=== PATIENT | male | born 1980 | race Caucasian/White ===

== ENCOUNTER 2017-03-15 07:44 | Emergency (ER) | payer BC, OTHER ==
[~2017-03-15] VITALS: Ht 175.3 cm; Wt 72.6 kg
--- NOTE | 2017-03-15 07:53 | ED Integumentary General ---
General Stated Complaint: L HAND MIDDLE FINGER INFECTION FROM CUT Source: patient, RN notes reviewed Exam Limitations: no limitations History of Present Illness Time seen by provider: 07:53 Initial Comments Patient presents c/ c/o left middle finger swelling and pain. Originally sustain a cut to the finger on while trimming goat hooves. By Friday, the finger had become swollen, red, and painful and is even worse this AM. No idea on last tetanus shot. Timing/Duration: constant, getting worse Severity: moderate Location: hands (left middle finger) Possible Cause: other (see above) Modifying Factors: improves with other (worse c/ movement and palpation) Associated Symptoms: edema, swelling/mass/lumps Allergies and Home Medications Allergies Coded Allergies: No Known Drug Allergies (Unverified , 03/15/17) Home Medications Clindamycin HCl 150 Mg Capsule, 300 MG PO Q6H, #80 Ref 0 Prescribed by: SIXTO RUFFIN on 03/15/17 0820 Constitutional: see HPI Skin: see HPI, other (Laceration c/ redness, & swelling left middle finger) All Other Systems Reviewed Negative Unless Noted: Yes (Negative excepted noted.) Past Vlbiexn-Ghsuqf-Nlesmc Hx Patient Social History Recent Foreign Travel: No Contact w/Someone Who Travel: No Physical Exam Vital Signs Vital Sign - Last 12Hours 03/15/17 07:49 Temp 97.5 Pulse 75 Resp 18 B/P (MAP) 123/67 Pulse Ox 100 O2 Delivery Room Air Capillary Refill : General Appearance: WD/WN, no apparent distress Cardiovascular: regular rate, rhythm Respiratory: no respiratory distress Extremities: other (superficial laceration PIP joint of left middle finger c/ surrounding redness, swelling, pain, and tenderness c/w secondary infection/ cellulitis. Mild decreased ROM secondary to pain and swelling.) Neurologic/Psychiatric: no motor/sensory deficits, alert, normal mood/affect, oriented x 3 Skin: warm/dry, other (see above under extremity regarding skin findings) Skin Problem Location: upper extremities (left middle finger) Skin Problem Character: erythema, swelling, tenderness, warm Progress/Results/Core Measures Results/Orders My Orders Orders - SIXTO RUFFIN DO Dipht,Pertuss(Acell),Tet Adult (Boostrix (03/15/17 08:00) Finger(S) (03/15/17 07:56) Dipht,Pertuss(Acell),Tet Adult (Boostrix (03/15/17 08:00) Clindamycin Capsule (Cleocin Capsule) (03/15/17 08:15) Clindamycin Capsule (Cleocin Capsule) (03/15/17 08:15) Medications Given in ED Current Medications Medications Dose Ordered Sig/Karen Route Start Time Stop Time Status Last Admin Dose Admin Clindamycin HCl 300 mg ONCE ONCE PO 03/15/17 08:15 03/15/17 08:21 DC 03/15/17 08:21 300 MG Diphtheria/ Tetanus/Acell Pertussis 0.5 ml ONCE ONCE IM 03/15/17 08:00 03/15/17 08:06 DC 03/15/17 08:12 0.5 ML Vital Signs/I&O Vital Sign - Last 12Hours 03/15/17 07:49 Temp 97.5 Pulse 75 Resp 18 B/P (MAP) 123/67 Pulse Ox 100 O2 Delivery Room Air Diagnostic Imaging Diagonstic Imaging: Xray Plain Films/CT/US/NM/MRI: other (left middle finger) Reviewed: Reviewed by Me (nothing acute; (+) STS) Departure Impression Impression: Primary Impression: Infected superficial laceration left middle finger Disposition: HOME, SELF-CARE Condition: Stable Departure-Patient Inst. Decision time for Depature: :17 Referrals: DAMARIS CARBALLO DO (PCP) Primary Care Physician Patient Instructions: Cellulitis (Skin Infection), Adult (DC) Add. Discharge Instructions: RECOMMEND 2 ALEVE EVERY 8 HOURS FOR PAIN AND SWELLING. WILL NEED TO FOLLOW UP WITH YOUR PCP ON FRIDAY, 03/17, IF FINGER ISN'T STARTING TO DO BETTER BY THEN. Scripts Clindamycin HCl (Clindamycin HCl) 150 Mg Capsule 300 MG PO Q6H for FINGER INFECTION, #80 CAP 0 Refills Prov: SIXTO RUFFIN DO 03/15/17 SIXTO RUFFIN DO Mar 15, 2017 07:53
[2017-03-15] MEDS ORDERED: TETANUS,DIPTH,PERTUSS P/F (BOOSTRIX) 0.5 ML VIAL IM ONE ×2 (08:00)
[2017-03-15] MEDS ORDERED: CLINDAMYCIN 150 MG (CLEOCIN) CAP PO ONE ×2 (08:15)
[2017-03-15] MEDS ORDERED: CLIN150C17 PO (08:20)
[2017-03-15 08:25] VITALS: BP 123/67
--- NOTE | 2017-03-15 08:28 | Diagnostic Imaging Report ---
INDICATION: Third digit injury, laceration COMPARISON: None FINDINGS: 3 views of the left hand demonstrate no fracture or dislocation. Articular surfaces are normal. There is no foreign body. IMPRESSION: Negative left hand. Dictated by: Dictated on workstation # [id number]
== END 2017-03-15 08:26 | disposition home or self-care (01) ==
LOC: ER 07:48
DX: S61.213A Laceration without foreign body of left middle finger without damage to nail, initial encounter (principal); L08.9 Local infection of the skin and subcutaneous tissue, unspecified; Z23 Encounter for immunization; W22.8XXA Striking against or struck by other objects, initial encounter
CPT/HCPCS: 73140; 90471; 90715; 99284